=== PATIENT | female | born 1970 | race Caucasian/White ===

== ENCOUNTER → 2020-09-19 | Outpatient (CLI) | payer OTHER ==
[~2020-09-19] MED LIST: GADOTERATE 5 MMOL/10ML VIAL. INT ART ONE; IOHEXOL 300 MG/ML 50 ML VIAL. INT ART ONE; LIDOCAINE 1% Multi-Dose 20 ML VIAL. ID ONE
--- NOTE | 2020-09-19 16:07 | KCIC ---
DG ARTHROGRAM ELBOW RIGHT 09/19/2020 2:35 PM INDICATION: Right wrist pain, tear of TFCC COMPARISON: None available. PROCEDURE: Risks and benefits were discussed with the patient after which informed consent was obtained. Patien t was placed supine on the examination table. The mid carpal, distal radioulnar joint and radiocarpal joints were localized under fluoroscopy. Site for marked. Patient was prepped and draped in normal s terile fashion. 1 percent lidocaine was administered for superficial anesthetic effect. A 25-gauge ne edle was inserted into the metacarpal joint under fluoroscopic guidance. 2 cc mixture of 0.1 cc [place] scan, Omnipaque 300, lidocaine and saline was injected. Additional 25-gauge needle was inserted into the distal radial ulnar joint with 1 cc contrast injection. Additional 25-gauge needle was inserted i nto the radiocarpal joint and 2 cc gadolinium mixture was injected. Needle was removed and compressio n applied for hemostasis. Patient tolerated the procedure well. No complications were identified at t he time procedure. Fluoroscopy time: 88 seconds Number of images: 4 IMPRESSION: Successful mid carpal, distal radioulnar joint and radiocarpal joint arthrogram under fluoroscopic gu idance. Electronically signed by: Layla Burden MD (09/19/2020 4:05 PM) [id number]
--- NOTE | 2020-09-19 16:42 | KCIC ---
STUDY: MRI arthrogram of the right wrist INDICATION: Right wrist pain. Tear of the TFCC. COMPARISON: No previous MRI. Most recent wrist radiographs from 08/01/2020 TECHNIQUE: Multiplanar MR imaging of the right wrist performed after the intra-articular injection of contrast. The injection portion of the procedure is detailed separately. FINDINGS: Several sequences are mildly degraded by motion. Bones/cartilage: Healed distal radius fracture as described on comparison radiographs. Minimal residu al deformity such as seen on image 10 series 11. No acute fracture or focally aggressive marrow signa l abnormality. No advanced arthrosis. Neutral ulnar variance. Normal scapholunate interval. Ligaments: The dorsal and volar bands of the scapholunate ligament complex are intact. No evidence fo r lunotriquetral injury. Grossly intact extrinsic wrist ligaments noting infiltration by injectate. Musculotendinous: Small amount of extensor tendon sheath fluid favored iatrogenic. No tendon disrupti on or advanced tendinosis. TFCC: Contrast opacifies the distal radioulnar joint. Small amount of injected gas within the DRUJ. T he volar and dorsal bands of the TFCC are intact. Suspected subtle articular disc perforation as seen on image 20 series 8. The foveal and styloidal attachments remain intact. Miscellaneous: Within normal limits signal and cross-sectional dimension of the median nerve. Distent ion of the dorsal wrist subcutaneous tissues with fluid signal is iatrogenic from the injections. IMPRESSION: 1. Injected contrast distends the distal radioulnar joint with an associated small articular disc pe rforation as seen on image 20 series 8. The amount of fluid within the DRUJ is somewhat out of propor tion to the size of the disc perforation but the dorsal and volar bands of the TFCC remain intact and there is no evidence for disruption at the radial or ulnar attachments to further explain the volume of fluid. If the patient's symptoms are referable to the TFCC arthroscopy may be warranted to [facility] doug[facility]. 2. Healed fracture deformity at the distal radius. No acute osseous abnormality or advanced arthrosi s. Electronically signed by: CATHY MONTILLA MD (09/19/2020 4:40 PM) [id number]
== END | disposition home or self-care (01) ==
LOC: KCIC 13:58
PROVIDERS: ATTEND Physician Assistant
DX: M25.531 Pain in right wrist (principal); S63.591A Other specified sprain of right wrist, initial encounter; Z88.0 Allergy status to penicillin; Z88.1 Allergy status to other antibiotic agents; Z79.899 Other long term (current) drug therapy; X58.XXXA Exposure to other specified factors, initial encounter; Y93.89 Activity, other specified; Y92.89 Other specified places as the place of occurrence of the external cause; Y99.8 Other external cause status
CPT/HCPCS: 25246; 73222; 77002; A9575; J3490; Q9967; 73115